=== PATIENT | female | born 1985 | race Caucasian/White ===

== ENCOUNTER 2017-05-31 09:07 | Emergency (ER) | payer SELFPAY ==
[~2017-05-31] VITALS: Ht 152.4 cm; Wt 61.0 kg
[2017-05-31] MEDS ORDERED: CEPH500 PO (09:32)
[2017-05-31 11:43] VITALS: BP 121/77
== END 2017-05-31 12:15 | disposition home or self-care (01) ==
LOC: EMS 09:15
DX: N61.1 Abscess of the breast and nipple (principal); N63 Unspecified lump in breast
CPT/HCPCS: 99283